=== PATIENT | male | born 2005 | race Caucasian/White ===

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

== ENCOUNTER 2023-09-17 05:03 | Emergency (ER) | payer BC, OTHER ==
[2023-09-17 05:06] VITALS: O2SAT 99
--- NOTE | 2023-09-17 05:15 | ERPHSYRPT ---
- History of Present Illness Time Seen by Provider: 09/17/23 05:15 Source: patient, family Exam Limitations: no limitations Physician History: This is a 18-year-old male patient of Dr. Saavedra who presents with shortness of breath and fever that occurred prior to arrival while at work. Patient woke up this morning feeling fine and went to work feeling fine. However, at work he was having a headache, body aches, dizzy and felt as though he had a fever and his arms were tingling. He also began having a nonproductive cough. Patient arrives to the emergency department with a room air oxygen saturation level 100%. He has no known exposure to individuals with viral illness or with similar symptoms that he is having. Timing/Duration: today Activities at Onset: none Severity of Dyspnea-Max: mild Severity of Dyspnea-Current: mild Possible Cause: no prior episodes Modifying Factors: Improves With: coughing Associated Symptoms: cough, fever, chills, lightheadedness, sweating, No chest pain/discomfort Allergies/Adverse Reactions: amoxicillin [From Augmentin] Allergy (Mild, Verified 09/17/23 05:18) clavulanic acid [From Augmentin] Allergy (Mild, Verified 09/17/23 05:18) Home Medications: No Reportable Medications [No Reported Medications] 09/17/23 [History] Hx Tetanus, Diphtheria Vaccination/Date Given: (unk) Hx Influenza Vaccination/Date Given: (unk) Hx Pneumococcal Vaccination/Date Given: Yes Travel Risk - International Travel Have you traveled outside of the country in past 3 weeks: No - Emerging Infectious Disease Are you exhibiting symptoms associated with any current EIDs: Yes Symptoms: Cough: New Onset, Fever, Headaches/Body Aches/, Shortness of Breath - Review of Systems Constitutional: Fever, Chills, Weakness Eyes: No Symptoms Ears, Nose, & Throat: No Symptoms Respiratory: Cough Cardiac: No Symptoms Abdominal/Gastrointestinal: No Symptoms Genitourinary Symptoms: No Symptoms Musculoskeletal: No Symptoms Skin: No Symptoms Neurological: No Symptoms Psychological: No Symptoms Endocrine: No Symptoms Hematologic/Lymphatic: No Symptoms Immunological/Allergic: No Symptoms All Other Systems: Reviewed and Negative - Past Medical History Pertinent Past Medical History: No Neurological History: Migraines ENT History: No Pertinent History Cardiac History: No Pertinent History Respiratory History: Other Endocrine Medical History: No Pertinent History Musculoskeletal History: Other GI Medical History: No Pertinent History History: No Pertinent History Psycho-Social History: No Pertinent History Male Reproductive Disorders: No Pertinent History Other Medical History: COVID-19 (vaccinated), B wrist fractures - Past Surgical History Past Surgical History: No Neuro Surgical History: No Pertinent History Cardiac: No Pertinent History Respiratory: No Pertinent History Gastrointestinal: No Pertinent History Genitourinary: No Pertinent History Musculoskeletal: No Pertinent History Male Surgical History: No Pertinent History - Social History Smoking Status: Never smoker Exposure to second hand smoke: Yes Drug Use: none Patient Lives Alone: No - Nursing Vital Signs Nursing Vital Signs: Initial Vital Signs Temperature 101.3 F 09/17/23 05:05 Pulse Rate 108 H 09/17/23 05:05 Respiratory Rate 18 09/17/23 05:05 Blood Pressure 165/103 09/17/23 05:05 O2 Sat by Pulse Oximetry 99 09/17/23 05:05 Pain Scale Pain Intensity 6 - Physical Exam General Appearance: no apparent distress, alert Eye Exam: PERRL/EOMI, eyes nml inspection Ears, Nose, Throat Exam: hearing grossly normal, normal ENT inspection, normal pharynx Neck Exam: normal inspection, non-tender, supple, full range of motion Respiratory Exam: normal breath sounds, lungs clear, respiratory distress, airway intact, No chest tenderness Cardiovascular/Chest Exam: regular rate/rhythm Abdominal/Gastrointestinal Exam: soft, normal bowel sounds, No tenderness Rectal Exam: not done Extremity Exam: non-tender, normal range of motion, normal inspection Neurologic Exam: alert, oriented x 3, cooperative, sewer and drain technician II-XII nml as tested, normal mood/affect, nml cerebellar function, nml station & gait, sensation nml Skin Exam: normal color, warm, dry Lymphatic Exam: No adenopathy SpO2 Interpretation: normal SpO2: 99 O2 Delivery: Room Air - Course Nursing assessment & vital signs reviewed: Yes EKG Interpreted by Me: RATE (104), Sinus Tach, NORMAL AXIS, NORMAL INTERVALS, NORMAL QRS, Other (No acute ischemic changes. QTc is 400) Ordered Tests: Active Orders 24 hr Category Date Time Status Pulse Oximetry (ED) STAT Care 09/17/23 05:28 Active CHEST 1 VIEW (PORTABLE) Stat Exams 09/17/23 05:41 Taken BLOOD CULTURE Stat Lab 09/17/23 05:28 Received MONO SCREEN Stat Lab 09/17/23 06:11 Completed Medication Summary Discontinued Medications Generic Name Dose Route Start Last Admin Trade Name Alicia PRN Reason Stop Dose Admin Acetaminophen 650 mg 09/17/23 05:30 09/17/23 05:44 Acetaminophen 325 Mg Tablet PO 09/17/23 05:31 650 mg STAT STA Administration Acetaminophen Confirm 09/17/23 05:43 Acetaminophen 325 Mg Tablet Administered 09/17/23 05:44 Dose 650 mg .ROUTE .STK-PROTEIN LOUNGE ONE Sodium Chloride 1,000 mls @ 999 mls/hr 09/17/23 05:28 09/17/23 05:42 Sodium Chloride 0.9% 1000 Ml IV 09/17/23 06:28 Not Given .Q1H1M STA Ibuprofen 600 mg 09/17/23 05:30 09/17/23 05:44 Ibuprofen 600 Mg Tablet PO 09/17/23 05:31 600 mg STAT STA Administration Ibuprofen Confirm 09/17/23 05:43 Ibuprofen 600 Mg Tablet Administered 09/17/23 05:44 Dose 600 mg .ROUTE .[employer]-PROTEIN L[employer]GE ONE Lab/Rad Data: Laboratory Results 09/17/23 09/17/23 09/17/23 Range/Units 06:11 05:15 05:15 Monoscreen NEGATIVE (NEGATIVE) Influenza Type A Ag NEGATIVE (NEGATIVE) Influenza Type B Ag NEGATIVE (NEGATIVE) RSV (PCR) NEGATIVE (NEGATIVE) SARS-CoV-2 (PCR) NEGATIVE (NEGATIVE) Group A Strep Antibody NOT DETECTED (NEGATIVE) - Progress Progress: improved, re-examined Air Movement: good Progress Note: 09/17/23 06:17 My medical decision making and the assignment of low to moderate complexity of this patient's medical issue today is based on review of the patient's past medical history, review of the patient's medication list, review the patient drug allergy list, history present illness and physical findings on examination. The workup in this patient includes COVID test, monotest, influenza a and B test, RSV test, group A strep test. Will also perform a chest x-ray. The patient has a fever and we will provide the patient with both Tylenol and ibuprofen. The preliminary report of the chest x-ray was interpreted by me. Appears to me that there are mild bibasilar groundglass opacities. No definite large infiltrate or other acute findings. 09/17/23 06:26 I interpreted the patient's laboratory data results. Based on the laboratory data results the patient does not have any acute, emergent medical issue. Blood Culture(s) Obtained: No Antibiotics given: No Counseled pt/family regarding: lab results, diagnosis, need for follow-up, rad results Medical Desision Making - Independent Historian Additional History obtained from: Spouse - Diagnostic Testing Diagnostic test were ordered, analyzed, and reviewed by me: Yes Radiological Interpretation: Interpreted by me - Risk of complications Low Risk: Low risk of morbidity from additional dx testing or treatment - Departure Departure Disposition: Home Clinical Impression: Fever, Viral syndrome Condition: Stable Critical Care Time: No Referrals: EZEQUIEL SAAVEDRA MD [Primary Care Provider] - Follow up/PCP as directed Additional Instructions: Drink plenty of clear, cool liquids before advancing diet. Alternate Tylenol and ibuprofen as discussed every 4 hours while awake to help control aches and pains and fever. If you have a fever, drink cool liquids, wear minimum clothing and use cooling fan. May also take lukewarm bath or shower. Forms: Work/School Release Form
[2023-09-17] MEDS: Sodium Chloride 0.9% 1000 ML 1,000 ML IV STA (05:42)
[2023-09-17] MEDS ORDERED: MOTRIN 600 MG ONE (05:43)
[2023-09-17] MEDS ORDERED: TYLENOL 325 MG ONE (05:43)
[2023-09-17] MEDS: MOTRIN 600 MG PO STA (05:44)
[2023-09-17] MEDS: TYLENOL 325 MG PO STA (05:44)
[2023-09-17 05:59] LABS: INFLUENZA A NEGATIVE (NEGATIVE); INFLUENZA B NEGATIVE (NEGATIVE); RESPIRATORY SYNCTIAL VIRUS NEGATIVE (NEGATIVE); SARS-CoV-2 Xpert Express NEGATIVE (NEGATIVE)
[2023-09-17 06:59] VITALS: BP 137/84; PULSE 99; RESP 18; TEMP 100.4
--- NOTE | 2023-09-17 07:28 | XRAY ---
Indication: Fever and cough. Comparison: July 03, 2022 Portable chest again demonstrates normal heart, lungs, and bony thorax.
== END 2023-09-17 06:59 | disposition home or self-care (01) ==
LOC: ED 05:03
DX: B34.9 Viral infection, unspecified (principal); R50.9 Fever, unspecified; R06.02 Shortness of breath; R51.9 Headache, unspecified; M79.10 Myalgia, unspecified site; R42 Dizziness and giddiness; R05.1 Acute cough
CPT/HCPCS: 0241U; 36415; 71045; 86308; 87040; 87651; 94760; 99283; A9270-GY

== ENCOUNTER 2024-02-06 15:44 | Emergency (ER) | payer BC ==
[2024-02-06 15:54] VITALS: RESP 16; TEMP 97.8; O2SAT 96
[2024-02-06] MEDS ORDERED: ZOFRAN ODT 4 MG ONE (16:10)
[2024-02-06] MEDS: ZOFRAN ODT 4 MG PO ONE (16:11)
--- NOTE | 2024-02-06 16:11 | ERPHSYRPT ---
- History of Present Illness Source: patient Exam Limitations: no limitations Patient Subjective Stated Complaint: pt here for n/v/d that started today at 0200. he is able to keep some fluids down, Triage Nursing Assessment: pt alert, walked in, face mask in place, resp easy, skin w/d/p. no edema noted Physician History: Patient has nausea vomiting diarrhea. Does not have any abdominal pain. Is been going on since this morning. He thinks he might be a little dehydrated. He still urinating. He does not have any abdominal pain. More than half the people have seen today if it is the same symptoms. Eating and drinking makes his symptoms worse nothing makes it better. He has no other complaints Timing/Duration: today Allergies/Adverse Reactions: amoxicillin [From Augmentin] Allergy (Mild, Verified 02/06/24 15:52) clavulanic acid [From Augmentin] Allergy (Mild, Verified 02/06/24 15:52) Hx Tetanus, Diphtheria Vaccination/Date Given: No Hx Influenza Vaccination/Date Given: No Hx Pneumococcal Vaccination/Date Given: No Immunizations Up to Date: Yes Travel Risk - International Travel Have you traveled outside of the country in past 3 weeks: No - Emerging Infectious Disease Are you exhibiting symptoms associated with any current EIDs: Yes Symptoms: Diarrhea, Headaches/Body Aches/, Vomitting - Review of Systems Constitutional: No Symptoms Eyes: No Symptoms Ears, Nose, & Throat: No Symptoms Respiratory: No Symptoms Abdominal/Gastrointestinal: Nausea, Vomiting, Diarrhea Genitourinary Symptoms: No Symptoms Musculoskeletal: No Symptoms All Other Systems: Reviewed and Negative - Past Medical History Pertinent Past Medical History: No Neurological History: Migraines ENT History: No Pertinent History Cardiac History: No Pertinent History Respiratory History: Other Endocrine Medical History: No Pertinent History Musculoskeletal History: Other GI Medical History: No Pertinent History History: No Pertinent History Psycho-Social History: No Pertinent History Male Reproductive Disorders: No Pertinent History Other Medical History: COVID-19 (vaccinated), B wrist fractures - Past Surgical History Past Surgical History: No Neuro Surgical History: No Pertinent History Cardiac: No Pertinent History Respiratory: No Pertinent History Gastrointestinal: No Pertinent History Genitourinary: No Pertinent History Musculoskeletal: No Pertinent History Male Surgical History: No Pertinent History - Social History Smoking Status: Never smoker Exposure to second hand smoke: Yes Drug Use: none Patient Lives Alone: No - Social Determinants of Health Will the patient participate in the screening: Declined to provide - Nursing Vital Signs Nursing Vital Signs: Initial Vital Signs Temperature 97.8 F 02/06/24 15:54 Pulse Rate 111 H 02/06/24 15:54 Respiratory Rate 16 02/06/24 15:54 Blood Pressure 142/80 02/06/24 15:54 O2 Sat by Pulse Oximetry 96 02/06/24 15:54 Pain Scale Pain Intensity 5 - Physical Exam General Appearance: no apparent distress Eye Exam: PERRL/EOMI Respiratory Exam: normal breath sounds, lungs clear, No chest tenderness Cardiovascular Exam: regular rate/rhythm Gastrointestinal/Abdomen Exam: soft, normal bowel sounds, No tenderness, No distention Extremity Exam: normal inspection, normal range of motion Neurologic Exam: alert, oriented x 3 Skin Exam: normal color, warm SpO2: 96 - Course Nursing assessment & vital signs reviewed: Yes Ordered Tests: Medication Summary Discontinued Medications Generic Name Dose Route Start Last Admin Trade Name Freq PRN Reason Stop Dose Admin Ondansetron HCl 8 mg 02/06/24 16:06 02/06/24 16:11 Zofran 4 Mg/Udtablet Orally Disintegrating PO 02/06/24 16:07 8 mg STAT ONE Administration Ondansetron HCl Confirm 02/06/24 16:10 Zofran 4 Mg/Udtablet Orally Disintegrating Administered 02/06/24 16:11 Dose 8 mg .ROUTE .STK-MED ONE - Progress Progress: improved Progress Note: Patient was stable throughout stay. We did Zofran and an oralChallenge. He tolerated it well. I am going to send him home with some Zofran. On the differential was gastroenteritis, colitis Medical Desision Making - Diagnostic Testing Diagnostic test were ordered, analyzed, and reviewed by me: Yes - Risk of complications Minimal Risk: Minimal risk of morbidity - Departure Departure Disposition: Home Clinical Impression: Nausea vomiting and diarrhea Condition: Stable Critical Care Time: No Referrals: EZEQUIEL SAAVEDRA MD [Primary Care Provider] - Follow up/PCP as directed Instructions: Nausea and Vomiting, Adult ED Prescriptions: Ondansetron ODT 4 MG [Zofran Odt 4 mg] 4 mg PO Q6H PRN PRN #14 tablet PRN Reason: Nausea
[2024-02-06 16:30] VITALS: PULSE 104
[2024-02-06 16:48] VITALS: BP 125/90
== END 2024-02-06 16:57 | disposition home or self-care (01) ==
LOC: ED 15:44
DX: R11.2 Nausea with vomiting, unspecified (principal); R19.7 Diarrhea, unspecified
CPT/HCPCS: 99281; Q0162